=== PATIENT | female | born 2000 | race Caucasian/White ===

== ENCOUNTER 2019-05-04 12:32 | Emergency (ER) | payer BC, SELFPAY ==
[2019-05-04 12:34] VITALS: BP 136/72; PULSE 115; RESP 18; TEMP 36.4; O2SAT 99; BMI 32.8
[2019-05-04 13:01] VITALS: BP 136/72; PULSE 115; RESP 18; TEMP 36.4; O2SAT 99
--- NOTE | 2019-05-04 13:13 | CT_ITS ---
STUDY: CT ABDOMEN AND PELVIS WITH CONTRAST REASON FOR EXAM: Female, 18 years old. Right-sided abdominal pain RADIATION DOSAGE (If Supplied By Facility): CTDIvol = ( 9.74 ) mGy, DLP = ( 1017.75 ) mGycm TECHNIQUE: Transaxial images were obtained from the dome of the diaphragm to the symphysis pubis without oral contrast. IV Isovue 300 100 was administered. Sagittal and coronal images were reconstructed. Individualized dose optimization techniques were used for this CT. COMPARISON: None. FINDINGS: The visualized lung bases are unremarkable. The visualized portions of the heart are within normal limits. Normal liver. Normal gallbladder and extrahepatic biliary system. Normal spleen. Normal pancreas. Normal bilateral adrenal glands. Normal right kidney. Normal left kidney. Normal visualized stomach. Normal small intestine. Normal colon. The appendix is visualized and appears normal. Normal abdominal aorta. Normal inferior vena cava. Normal retroperitoneum. Normal urinary bladder. Normal abdominal wall. Normal osseous structures. CT/Abdomen/Pelvis W IV Cont ONLY IMPRESSION: No acute inflammatory process or bowel obstruction. Electronically Signed: Kel Jung MD ([facility]) at 14:19 EST , Service support ,
[2019-05-04] MEDS: 0.9% Normal Saline 1,000 ML 1000 ML IV (13:23)
[2019-05-04] MEDS: Ondansetron 4 MG/2 ML Vial IV (13:23)
[2019-05-04 13:32] LABS: Mucous, Urine 0 SEEN /hpf (<or=2+); Red Blood Cells-Urine 0 SEEN /hpf (0-5)
[2019-05-04 13:33] LABS: Absolute Lymphocyte Count 0.63 X10^3/uL (0.83-4.51); Absolute Neutrophil Count 8.3 X10^3/uL (2.0-7.7); Basophil# 0.04 X10^3/uL; Basophil% 0.4 % (0-1); Eosinophil# 0.02 X10^3/uL; Eosinophils% 0.2 % (0-5); Hematocrit 40.6 % (37-47); Hemoglobin 13.8 g/dL (12.0-15.0); Lymphocyte # 0.63 X10^3/ul (4.0); Lymphocyte % 6.5 % (19-41); Mean Corpuscular Hgb 30.5 pg (27.0-32.0); Mean Corpuscular Volume 89.8 fL (81-99); Mean Platelet Vol. 10.9 fl (6.2-12.0); Monocyte# 0.72 X10^3/uL; Monocyte% 7.4 % (0-10); NRBC Flagged by Analyzer 0 % (0-5); Neutrophil # 8.29 X10^3/uL (2.7-7.7); Neutrophil % 85.1 % (47-70); Platelet Count 361 K/mm3 (150-450); RBC Distribution Width CV 11.9 % (11.6-14.6); RBC Distribution Width SD 39.1 fl (35.1-43.9); Red Blood Count 4.52 M/mm3 (4.2-5.4); White Blood Count 9.7 K/mm3 (4.4-11.0)
[2019-05-04 13:34] LABS: Color, Urine Yellow (Yellow); Glucose, Dipstick Normal (Normal); Ketone-Dipstick 5 mg/dl (Negative); Leukocyte Esterase-Dipstick 25 /ul (Negative); Nitrite-Dipstick Negative (Negative); Occult Blood-Urine 10 /ul (Negative); Protein-Dipstick Negative (Negative); Specific Gravity, Urine 1.015 (1.002-1.030); Urine Bilirubin Dipstick Negative (Negative); Urine Clarity Clear (Clear); Urine Urobilinogen Normal (Normal)
[2019-05-04 13:38] LABS: Internal QC Validated? YES +Cl - CLEAR BKGD; Pregnancy, Urine Negative Negative
[2019-05-04 13:43] LABS: Bacteria RARE /hpf (None Seen); Squamous Epithelial Cells - UA 0-5 SEEN /hpf (5-10); White Blood Cells 0-5 SEEN /hpf (0-5)
--- NOTE | 2019-05-04 13:52 | ED.VIS.GI ---
History of Present Illness Chief Complaint: Abd Pain Informant: Patient - Abdominal Pain/Flank Pain Onset: Yesterday Context: Gradual Onset Timing: Intermittent Quality: Aching Location: Diffuse Worsened by: Nothing Relieved by: Nothing - Nausea/Vomiting/Emesis GI Symptom: Nausea, Vomiting Onset: Yesterday Quality: Nonbilious. Negative for: Blood streaks, Coffee ground, Hematemesis - Diarrhea/Melena/Hematochezia GI Symptom: Diarrhea Onset: Yesterday Stool Quality: Loose Severity: Mild Associated Symptoms: Negative for: Dysuria, Frequency, Hematuria, Urgency LMP: 1 month Narrative: Patient is a 18-year-old female presenting with nausea, vomiting and abdominal pain that started last night. She states she was started on a Z-Robert 4 days ago for sinusitis and bronchitis. The symptoms have been improving. She took her dose at 10 PM. At 4 AM she woke up cramping abdominal pain and vomiting. She states she is thrown up multiple times since then. She denies any black or blood in her vomit.she notes that she has pain in her abdomen most specifically over her right flank. She states she had normal bowel movement yesterday but started having diarrhea today. She has chills but no fever. Patient states a week ago she had the same cramping flank pain but had resolved spontaneously. She is last menstrual. Is March 28. She denies any symptoms. She denies any other complaints at this time including rash, chest pain, short of breath or difficulty breathing. States is been able to eat or drink anything today because of her vomiting. Prior similar symptoms: No Past Medical History - Allergies and Home Meds Allergies/Adverse Reactions: Allergies Penicillins [PCN] Allergy (Verified 05/04/19 12:33) Rash Review of Systems General: Reports: Chills. Denies: Fever, Sweats Eyes: Denies: Visual changes - bilaterally, Diplopia ENT: Denies: Rhinorrhea, Sore throat Cardiovascular: Denies: Chest pain, Palpitations Respiratory: Denies: Dyspnea, Cough, Dyspnea on exertion Gastrointestinal: Reports: Abdominal pain, Nausea, Vomiting, Diarrhea. Denies: Melena, Hematochezia Genitourinary: Denies: Dysuria, Hematuria, Frequency Musculoskeletal: Denies: Myalgias, Arthralgias, Back pain Skin: Denies: Rash, Wounds Neurological: Denies: Headache, Weakness, Numbness Physical Exam Vital Signs/Narrative: Vital Signs Temp Pulse Resp BP Pulse Ox 05/04/19 13:01 97.5 F L 115 H 18 136/72 H 99 05/04/19 12:34 97.5 F L 115 H 18 136/72 H 99 Inital Vital Signs reviewed: Yes General: Well nourished, Well developed, No Acute Distress Head: Normocephalic, Atraumatic Eyes: Perrl, EOMI ENT: Moist mucous membranes, No rhinorrhea Neck: Supple, Nontender Cardiovascular: Regular rate, Regular rhythm, No murmurs Respiratory: No distress, CTA bilaterally, Chest nontender Abdomen: Soft, Nondistended, Normal bowel sounds, Tender - RLQ, Rovsig's sign. Negative for: Rebound tenderness, Psoas sign, Obturator sign Back: Normal Inspection, CVA tenderness. Negative for: Nontender Extremities: Nontender, No edema Skin: Normal color, No rash Neurological: Alert, Oriented x3, Cranial nerves II-XII grossly intact, Normal Strength, Normal Sensation Psychological: Normal affect, Normal Mood Diagnostic/Tx/Re-eval CT: Abdomen and Pelvis Clinical Impression(s) from Imaging Studies Abdomen/Pelvis CT 05/04/19 13:13 IMPRESSION: No acute inflammatory process or bowel obstruction. Electronically Signed: Kel Jung MD ([facility]) at 14:19 EST , Service support , Laboratory Data 05/04/19 05/04/19 05/04/19 13:25 13:25 13:25 WBC 9.7 RBC 4.52 Hgb 13.8 Hct 40.6 MCV 89.8 MCH 30.5 MCHC 34.0 RDW Std Deviation 39.1 RDW Coeff of Jose 11.9 Plt Count 361 MPV 10.9 Immature Gran % (Auto) 0.400 Neut % (Auto) 85.1 H Lymph % (Auto) 6.5 L [place] % (Auto) 7.4 Eos % (Auto) 0.2 Baso % (Auto) 0.4 Absolute Neuts (auto) 8.3 H Absolute Lymphs (auto) 0.63 L Nucleated RBC % 0 Sodium 139 Potassium 3.7 Chloride 106 Carbon Dioxide 25.0 Anion Gap 8 BUN 13 Creatinine 0.88 Estim Creat Clear Calc 85.06 Est GFR (MDRD) Af Amer 105 Est GFR (MDRD) Non-Af 87 BUN/Creatinine Ratio 14.7 Glucose 100 Calcium 9.5 Total Bilirubin 0.50 AST 19 ALT 29 Alkaline Phosphatase 78 Total Protein 8.8 H Albumin 3.6 Globulin 5.2 H Albumin/Globulin Ratio 0.7 L Lipase 138 Urine Color Urine Clarity Urine pH Ur Specific Frakes Urine Protein Urine Glucose (UA) Urine Ketones Urine Occult Blood Urine Nitrite Urine Bilirubin Urine Urobilinogen Ur Leukocyte Esterase Urine RBC Urine WBC Ur Squamous Epith Cells Urine Bacteria Urine Mucus Urine Test Negative 05/04/19 13:25 WBC RBC Hgb Hct MCV MCH MCHC RDW Std Deviation RDW Coeff of Jose Plt Count MPV Immature Gran % (Auto) Neut % (Auto) Lymph % (Auto) [place] % (Auto) Eos % (Auto) Baso % (Auto) Absolute Neuts (auto) Absolute Lymphs (auto) Nucleated RBC % Sodium Potassium Chloride Carbon Dioxide Anion Gap BUN Creatinine Estim Creat Clear Calc Est GFR (MDRD) Af Amer Est GFR (MDRD) Non-Af BUN/Creatinine Ratio Glucose Calcium Total Bilirubin AST ALT Alkaline Phosphatase Total Protein Albumin Globulin Albumin/Globulin Ratio Lipase Urine Color Yellow Urine Clarity Clear Urine pH 5.0 Ur Specific Frakes 1.015 Urine Protein Negative Urine Glucose (UA) Normal Urine Ketones 5 H Urine Occult Blood 10 H Urine Nitrite Negative Urine Bilirubin Negative Urine Urobilinogen Normal Ur Leukocyte Esterase 25 H Urine RBC 0 SEEN Urine WBC 0-5 SEEN Ur Squamous Epith Cells 0-5 SEEN Urine Bacteria RARE Urine Mucus 0 SEEN Urine Test - Medical Decision Making Patient evaluated for abdominal discomfort, flank pain and GI symptoms. She appears nontoxic and in no acute distress. She is mildly tachycardic on arrival. Vital signs are otherwise normal. She does have some tenderness in the right lower quadrant on exam. Blood work is largely unremarkable. No signs of pancreatitis or acute infection. A CT of the abdomen pelvis does not show acute appendicitis or other acute intra-abdominal pathology. It is possible that this is gastroenteritis. Patient is given fluids and Zofran in the emergency room. She is discharged home with course of Zofran. She is counseled to follow-up with her primary care doctor. Patient is counseled on signs and symptoms requiring return to the emergency room. Patient verbalizes agreement and understand this plan. Patient discharged home in stable and improved condition. ED Disposition - Plan for ED Patient: Disposition: Home or Assisted Living Diagnosis: Abdominal pain, Vomiting and diarrhea Instructions: ABDOMINAL PAIN, Unknown Cause, (Female), VOMITING AND DIARRHEA, Nonspecific (Adult) Prescriptions: Ondansetron [Zofran Odt] 4 mg PO Q8H PRN PRN #10 tab PRN Reason: Nausea Prescription Printed Additional Instructions: Follow-up with your primary care doctor. Eat bland food and liquids until you are feeling better. Return if you have worsening symptoms. The exact cause of your pain is not clear but I think that you are safe to go home. Is possible this is just a viral syndrome.
[2019-05-04 13:53] LABS: ALB/GLOB Ratio 0.7 RATIO (0.9-2.4); AST(SGOT) 19 U/L (15-37); Alanine Aminotransfer ALT/SGPT 29 U/L (13-56); Albumin, Serum 3.6 g/dL (3.2-5.0); Alkaline Phosphatase 78 U/L (45-117); Anion Gap 8 (5-15); BUN 13 mg/dL (7-18); BUN/Creat Ratio 14.7 RATIO (10-20); Calcium,Total 9.5 mg/dL (8.5-10.1); Chloride 106 mmol/L (98-107); Creatinine, Serum 0.88 mg/dL (0.55-1.02); EST Glomerular Filtration Rate 87 mL/min (>60); Est Glom Filt Rate - Afr Amer 105 mL/min (>60); Estimated Creatinine Clearance 85.06 ml/min; Globulin 5.2 g/dL (2.2-4.2); Glucose 100 mg/dL (74-106); Lipase 138 U/L (73-393); Potassium 3.7 mmol/L (3.5-5.1); Protein, Total 8.8 g/dL (6.4-8.2); Sodium Level 139 mmol/L (136-145)
[2019-05-04 14:01] VITALS: BP 128/74; PULSE 104; RESP 18; TEMP 36.6; O2SAT 99
[2019-05-04 14:15] VITALS: BP 128/74; PULSE 104; RESP 18; TEMP 36.6; O2SAT 99
[2019-05-04] MEDS: Ketorolac 15 MG/ML Vial IV (15:20)
[2019-05-04] MEDS: Dicyclomine 10 MG Capsule 20 MG PO (15:20)
[2019-05-04 15:25] VITALS: BP 136/71; PULSE 95; RESP 18; TEMP 36.8; O2SAT 100
== END 2019-05-04 15:59 | disposition home or self-care (01) ==
PROVIDERS: Emergency Provider Emergency Medicine
DX: R10.9 Unspecified abdominal pain (principal); R19.7 Diarrhea, unspecified; R11.2 Nausea with vomiting, unspecified; J32.9 Chronic sinusitis, unspecified; J40 Bronchitis, not specified as acute or chronic
CPT/HCPCS: 74177; 80053; 81001; 81025; 83690; 85025; 96361; 96374; 96375; 99284; J7030; Q9967; A4216; J2405